=== PATIENT | female | born 1985 | race Caucasian/White ===

== ENCOUNTER → 2017-11-02 11:26 | Outpatient (CLI) | payer MEDICAID, SELFPAY ==
[2017-11-07 10:50] LABS: HPV Reflexed? NOT INDICATED
== END ==
PROVIDERS: Visit Provider Obstetrics & Gynecology
DX: Z12.4 Encounter for screening for malignant neoplasm of cervix (principal)
CPT/HCPCS: 88175; G0145

== ENCOUNTER → 2017-12-28 10:52 | Outpatient (CLI) | payer MEDICAID, SELFPAY | PROVIDERS: Visit Provider Internal Medicine Cardiovascular Disease | DX: I47.1 Supraventricular tachycardia (principal); R00.2 Palpitations | CPT/HCPCS: 93225; 93226 ==

== ENCOUNTER 2018-08-22 19:24 | Day surgery (SDC) | payer MEDICAID, SELFPAY ==
[2018-08-22 19:24] VITALS: BP 159/94; PULSE 124; RESP 18; TEMP 37.1; O2SAT 99; BMI 35.5
[2018-08-22 19:54] LABS: Mucous, Urine 0 SEEN /hpf (<or=2+); White Blood Cells 0 SEEN /hpf (0-5)
[2018-08-22 20:14] LABS: Color, Urine Yellow (Yellow); Glucose, Dipstick Normal (Normal); Ketone-Dipstick Negative (Negative); Leukocyte Esterase-Dipstick Negative /ul (Negative); Nitrite-Dipstick Negative (Negative); Occult Blood-Urine 250 /ul (Negative); Protein-Dipstick Negative (Negative); Urine Bilirubin Dipstick Negative (Negative); Urine Clarity Clear (Clear); Urine Urobilinogen Normal (Normal)
[2018-08-22 20:15] LABS: Bacteria RARE /hpf (None Seen); Squamous Epithelial Cells - UA 0-5 SEEN /hpf (5-10)
[2018-08-22 20:16] LABS: Red Blood Cells-Urine 0-5 SEEN /hpf (0-5)
[2018-08-22 21:27] LABS: Absolute Lymphocyte Count 2.42 X10^3/ul (0.83-4.51); Absolute Neutrophil Count 4.9 X10^3/uL (2.0-7.7); Basophil# 0.04 X10^3/uL; Basophil% 0.5 % (0-1); Eosinophil# 0.11 X10^3/uL; Eosinophils% 1.4 % (0-5); Hematocrit 39.4 % (37-47); Hemoglobin 13.3 g/dl (12.0-15.0); Lymphocyte # 2.42 X10^3/ul (4.0); Lymphocyte % 30.3 % (19-41); Mean Corp Hgb Conc 33.8 g/gl (32-36); Mean Corpuscular Hgb 29.5 pg (27.0-32.0); Mean Corpuscular Volume 87.4 fL (81-99); Mean Platelet Vol. 10.6 fl (6.2-12.0); Monocyte# 0.54 X10^3/uL; Monocyte% 6.8 % (0-10); Neutrophil # 4.88 X10^3/uL (2.7-7.7); Neutrophil % 60.9 % (47-70); Platelet Count 240 K/mm3 (150-450); RBC Distribution Width CV 12.6 % (11.6-14.6); RBC Distribution Width SD 40.8 fl (35.1-43.9); Red Blood Count 4.51 M/mm3 (4.2-5.4)
[2018-08-22 21:28] LABS: POSITIVE COUNT NO; POSITIVE DIFFERENTIAL NO; POSITIVE MORPHOLOGY NO
[2018-08-22 21:48] LABS: Internal QC Validated? YES +Cl - CLEAR BKGD
[2018-08-22 21:51] LABS: Pregnancy, Urine Positive Negative
--- NOTE | 2018-08-22 21:53 | US_ITS ---
STUDY: FIRST TRIMESTER OBSTETRICAL ULTRASOUND REASON FOR EXAM: Female, 32 years old. Lower pelvic pain for 3 days with moderate vaginal bleeding. LMP: Unknown. TECHNIQUE: Transabdominal and Transvaginal. Transvaginal imaging is performed for improved visualization of the endometrium and adnexal regions. TECHNICAL QUALITY: Adequate. PRIOR ULTRASOUND: Prior comparison studies are not available for review at this time. FINDINGS: There is no demonstrated intrauterine gestational sac. There is no demonstrated yolk sac. The placenta is non-visualized. There is no demonstrated embryo ( pole). The uterus measures 3.0 x 3.5 x 5.7 cm. There is no demonstrated uterine fibroid. The cervix is closed. The right ovary measures 4.6 x 2.8 x 2.1 cm. There are multiple follicles of the right ovary without a dominant cyst. There is adnexal mass that has prominent peripheral vascularity. It has a cystic center. The appearance suggests an ectopic. This measures approximately 3.7 x 4.8 x 2.8 cm. The left ovary measures 3.8 x 2.3 x 2.7 cm. There are multiple follicles of the left ovary without a dominant cyst. There is no visualized left adnexal mass or complex lesion. There is a moderate amount of fluid in the cul de sac. US/Transvaginal w/Preg US IMPRESSION: Sonographic findings revealing a right-sided adnexal mass without intrauterine . This suggests an ectopic . N.B. : The above information has been verbally conveyed by Nirmala Morales MD to Dr. Marc MD, on 08/22/2018 23:20:41 (ET). Electronically Signed: Nirmala Morales MD at 23:22 EDT , Service support ,
[2018-08-22 21:55] LABS: Anion Gap 7 (5-15); BUN 9 mg/dL (7-18); BUN/Creat Ratio 13.4 RATIO (10-20); Calcium,Total 8.9 mg/dL (8.5-10.1); Chloride 105 mmol/L (98-107); Creatinine, Serum 0.67 mg/dL (0.55-1.02); EST Glomerular Filtration Rate 107 mL/min (>60); Est Glom Filt Rate - Afr Amer 129 mL/min (>60); Estimated Creatinine Clearance 98.79 ml/min; Glucose 83 mg/dL (74-106); Potassium 3.5 mmol/L (3.5-5.1); Sodium Level 141 mmol/L (136-145)
--- NOTE | 2018-08-22 21:56 | ED.VISSUMM ---
- ER Visit Summary Date of Service: 08/22/18 Chief Complaint: Abdominal pain History of Present Illness: The patient is a [address] Lund. She reports that she has lower abdominal pain that began approximately 4 days ago. It came on suddenly. To been a constant pain that waxes and wanes. It is a sharp, stabbing pain that is 8 out of 10 at worst and 4-10 currently. Is worsened by movement or pushing on it. Is relieved by remaining still. She has had nausea without vomiting. No diarrhea. Her last bowel was today. No melena or hematochezia. No dysuria frequency. She reports that she is on her menstrual period now. It is a little heavier than usual. She denies any vaginal discharge. She has had subjective fever. Physical Examination: Vitals: 98.7, 136/79, 122, 16, 98% on room air which is not hypoxic. General: Well-nourished and well-developed. Head: Normocephalic atraumatic. Neck: Supple, no lymphadenopathy. No JVD. Nontender. Cardiovascular: Tachycardic regular rhythm . No murmurs. Respiratory: No respiratory distress. Clear to auscultation bilaterally. Abdominal: Soft, moderate suprapubic tenderness to palpation, nondistended, normal bowel sounds. No guarding, rebound, or peritoneal signs. Back: Nontender. Extremities: Nontender, no edema. Skin: Normal color, no rash. Neurologic: Alert and oriented ?3. Cranial nerves II through XII are intact. Normal strength and sensation. Psych: Normal affect. Test Results: CBC is normal. Chem-7 is normal. UA is negative. test is positive. Quantitative hCG is 279. Blood type is A+. Transvaginal ultrasound shows a right-sided adnexal mass that is 3.7 x 4.8 x 2.8 cm with a moderate amount of free fluid. Emergency Department Course and Treatment: Patient rested comfortably. She refused pain or nausea medications. Treatment Plan: The patient was discussed with Dr. Kinney. She is going to be taken to the operating room. Disposition: Admitted in stable condition. Impression: 1. Ectopic . This note was generated with [employer] dictation software. It may contain incorrect words, spelling, and punctuation that were not noted in review of the chart prior to signing ED Disposition - Plan for ED Patient: Referrals: Care Physician,No Primary [Primary Care Provider] -
[2018-08-22 22:28] LABS: hCG Titer Quant., Serum 279 mIU/mL (<9 non-preg)
[2018-08-22 23:16] VITALS: BP 136/79; PULSE 122; RESP 16; O2SAT 98
[2018-08-23] VITALS (7 sets, daily range): BP systolic 111–143; BP diastolic 77–101; PULSE 93–134; RESP 16–18; TEMP 37.2–37.7; O2SAT 96–100; BMI 35.5
--- NOTE | 2018-08-23 | FAL_PTH ---
PATIENT: ASIA GRACIA LOC: [facility] [place] U#:[id number] AGE/SX: 32/F ROOM: RE08/23/[address]: Dr. Angel Kinney MD : 1985 BED: DIS: 08/23/2018 SPEC #: [id number] RECD: 08/23/18 14:25 STATUS: ROSS CHAVEZ #: [id number] NKECHI: 08/23/18 00:[address]: Angel Kinney DEPT: SURGICAL PATHOLOGY RECD BY: Spencer Zendejas ENTERED: 08/23/18 14:25 SP TYPE: ECTOPIC OTHR DR: No Primary Care Phys Tissues: ECTOPIC PREG Procedures: Surgery Specimen Level IV HEADER OPERATION: Exploratory laparoscopy, right salpingectomy with removal ectopic PRE-OP DIAGNOSIS: Ectopic TISSUE SUBMITTED: Right fallopian tube with ectopic MICROSCOPIC DIAGNOSIS Right fallopian tube with ectopic : Chorionic villi and organizing blood clot consistent with products of conception. AM:brandon 08/27/18 COMMENT Case has been reviewed in consultation with Dr. Baliey who concurs with the above diagnosis. IDC:[email or web address] MICROSCOPIC DESCRIPTION Slides are reviewed. GROSS DESCRIPTION Received in fixative is one container labeled with the patient's name and designated right fallopian tube with ectopic . The specimen consists of a fallopian tube measuring 6 cm in length and up to 1.5 cm in diameter. The fimbrial end is identified. Close to fimbrial end, multiple blood clots are noted. No obvious rupture is noted. The lumen reveals multiple blood clots. No tissue is identified. Also present in the container are multiple blood clots measuring in aggregate 6 x 6 x 2 cm. Pump Servicer Helper sections are submitted in four cassettes as follows: 1 & 2 - fallopian tube, 3 & 4 - blood clots. / SJ:brandon 08/23/18 Additional cassettes are submitted, 5-13 - remainder of the specimen. / AM:brandon 08/24/18 TC:5 CPT: [id number]
--- NOTE | 2018-08-23 00:28 | PCM.HP.STD ---
Problem List (1) Ectopic without intrauterine Status: Acute Qualifiers: Location of ectopic : tubal Laterality: right Qualified Code(s): O00.101 - Right tubal without intrauterine (2) Ectopic , tubal Status: Acute Qualifiers: Intrauterine status: without intrauterine Laterality: right Qualified Code(s): O00.101 - Right tubal without intrauterine History of Present Illness Date of Admission: 08/23/18 Chief Complaint: Abdominal pain The patient is a 32 year old F [with bleeding and abdominal pain over the past few days. Pain became worse this evening. ] Past Medical History Past Medical History (Chronic Problems): Chronic Problems (Last Reviewed 11/16/17 @ 14:00 by Ziyad Maier MD) Palpitations (Chronic) Paroxysmal atrial tachycardia (Chronic) Sinus tachycardia (Chronic) Medical History: Medical History (Last Reviewed 11/16/17 @ 14:00 by Ziyad Maier MD) Palpitations (Chronic) R00.2 Paroxysmal atrial tachycardia (Chronic) I47.1 Sinus tachycardia (Chronic) R00.0 Allergies latex Allergy (Verified 08/22/18 19:27) Hives PINE SAP Allergy (Uncoded 08/22/18 19:27) Hives Home Medications: Ambulatory Orders Medication Instructions Recorded multivitamin tablet 1 tab PO QDAY 09/22/17 norethindrone (contraceptive) 0.35 0.35 mg PO QDAY 09/22/17 mg tablet Surgical History: Surgical History (Last Reviewed 11/16/17 @ 14:00 by Ziyad Maier MD) History of Z98.891 2008; 2012; 2015 Surgical History: - - C/S x3 Psychiatric History: 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: - - history of abnormal pap tests Lives: Spouse/ Significant Other Smoking Status: Never smoker Drugs: None - *Family History Maternal Family History: Family History (Last Reviewed 11/16/17 @ 14:00 by Ziyad Maier MD) Father Asthma Diabetes HLD (hyperlipidemia) Hypertension Mother Hypertension Pulmonary embolism Breast cancer History Items: No pertinent history Paternal Family History: Family History (Last Reviewed 11/16/17 @ 14:00 by Ziyad Maier MD) Father Asthma Diabetes HLD (hyperlipidemia) Hypertension Mother Hypertension Pulmonary embolism Breast cancer History Items: No pertinent history Review of Systems Constitutional: Denies: Chills, Fever Cardiovascular: Denies: Chest Pain, Chest Pressure, Chest Tightness, Edema Respiratory: Denies: Cough, Pleuritic Pain, Shortness of Breath Gastrointestinal: Reports: Abdominal Pain - lower Genitourinary: Denies: Dysuria, Frequency, Hematuria Gynecological: Reports: Vaginal bleeding - similar to period for the past 4 to 5 days Psychiatric: Denies: Anxiety, Depression Hematologic/ Lymphatic: Reports: Hx of blood clot - superficial thrombosis after IV placement VTE Information - Inpt Only VTE Present on Admission: No VTE Mechan Device Prophylaxis: SCD's VTE Pharm Prophylaxis ordered?: No Patient Problems: Active and Suspected Problems (Last Reviewed 11/16/17 @ 14:00 by Ziyad Maier MD) Ectopic without intrauterine (Acute) Ectopic , tubal (Acute) Subjective: Appears well in no distress. Objective: Afeb Tachycardic with marginally elevated BPs - Physical Exam General: Alert, Oriented x3, Cooperative, No apparent distress Lungs: Clear to auscultation, Normal air movement Cardiovascular: Regular rate, Regular Rhythm Abdomen: Soft, Non-Distended, - - Tender to deep palpation in the lower abdomen. No masses. No guarding Extremities: No edema Skin: No rashes Neurological: Neuro grossly intact Psych/Mental Status: Normal Affect Comment: some small amount of vaginal bleeding Vital Signs Temp Pulse Resp BP Pulse Ox 98.9 F 134 H 16 143/101 H 96 08/23/18 00:21 08/23/18 00:21 08/23/18 00:21 08/23/18 00:21 08/23/18 00:21 Oxygen Delivery Method Room Air Weight: 200 lb 9.93 oz Body Mass Index (BMI) 35.5 Laboratory Tests Past 24 Hrs 08/22/18 08/22/18 08/22/18 19:45 19:45 21:15 WBC 8.0 RBC 4.51 Hgb 13.3 Hct 39.4 MCV 87.4 MCH 29.5 MCHC 33.8 RDW 12.6 RDW Differential 40.8 Plt Count 240 MPV 10.6 Immature Gran % (Auto) 0.100 Neut % (Auto) 60.9 Lymph % (Auto) 30.3 [place] % (Auto) 6.8 Eos % (Auto) 1.4 Baso % (Auto) 0.5 Absolute Neuts (auto) 4.9 Absolute Lymphs (auto) 2.42 Total Counted Not Reportable Sodium Potassium Chloride Carbon Dioxide Anion Gap BUN Creatinine Estim Creat Clear Calc Est GFR (MDRD) Af Amer Est GFR (MDRD) Non-Af BUN/Creatinine Ratio Glucose Calcium HCG, Quant Urine Color Yellow Urine Clarity Clear Urine pH 6.0 Ur Specific [place] 1.010 Urine Protein Negative Urine Glucose (UA) Normal Urine Ketones Negative Urine Occult Blood 250 H Urine Nitrite Negative Urine Bilirubin Negative Urine Urobilinogen Normal Ur Leukocyte Esterase Negative Urine RBC 0-5 SEEN Urine WBC 0 SEEN Ur Squamous Epith Cells 0-5 SEEN Urine Bacteria RARE Urine Mucus 0 SEEN Urine Test Positive H 08/22/18 08/22/18 21:15 21:15 WBC RBC Hgb Hct MCV MCH MCHC RDW RDW Differential Plt Count MPV Immature Gran % (Auto) Neut % (Auto) Lymph % (Auto) [place] % (Auto) Eos % (Auto) Baso % (Auto) Absolute Neuts (auto) Absolute Lymphs (auto) Total Counted Sodium 141 Potassium 3.5 Chloride 105 Carbon Dioxide 29.0 Anion Gap 7 BUN 9 Creatinine 0.67 Estim Creat Clear Calc 98.79 Est GFR (MDRD) Af Amer 129 Est GFR (MDRD) Non-Af 107 BUN/Creatinine Ratio 13.4 Glucose 83 Calcium 8.9 HCG, Quant 279 H Urine Color Urine Clarity Urine pH Ur Specific [place] Urine Protein Urine Glucose (UA) Urine Ketones Urine Occult Blood Urine Nitrite Urine Bilirubin Urine Urobilinogen Ur Leukocyte Esterase Urine RBC Urine WBC Ur Squamous Epith Cells Urine Bacteria Urine Mucus Urine Test Assessment/Plan All Active Problems (Last Reviewed 11/16/17 @ 14:00 by Ziyad Maier MD) Ectopic without intrauterine (Acute) Ectopic , tubal (Acute) Likely with ruptured ectopic probably right side. Discussed US findings and diagnosis of probable ectopic. Also discussed possibility of early with ovarian cyst that may have ruptured. Indications for surgery discussed. Procedures, risks, and probable post operative recovery discussed. All questions answered, consents obtained. Plan for exploratory laparoscopy, possible salpingostomy, possible salpingectomy. Understands may lose ovary during surgery and may need open procedure if ectopic located in cornua or the uterus.
[2018-08-23] MEDS: Cefazolin 2 GM in 0.9% Normal Saline 100 ML IV (00:36)
--- NOTE | 2018-08-23 00:45 | DCINST_ITS ---
- Discharge Diagnoses Current Active Problems: Current Active and Chronic Problems (Last Reviewed 11/16/17 @ 14:00 by Ziyad Maier MD) Ectopic without intrauterine (Acute) Ectopic , tubal (Acute) You will use the following diet at home:: No restrictions Your food should be the consistency of: Regular Discharge Activity: Return to Normal Activity, May Drive, May not drive while taking narcotic pain medications., May Shower Return to work on:: 08/27/18 May shower in (days): 0 May resume sexual activity in: 2 weeks Call your doctor if your incision/area has: Continuous Slow Oozing, Sudden Increased Bleeding, Increased Pain/ Swelling, Increased Redness, Foul Smelling Discharge, Swelling at the incision site Call your doctor if you observe: Fever of 101 or Higher, Inability to urinate, Inability to have a bowel movement, Using more than one pad per hour, Shortness of breath, Chest pain, Calf discomfort, Uncontrolled pain Remove Dressing in (days):: 2 Cleanse incision/area with: Soap & Water Allergies/Adverse Reactions: Allergies latex Allergy (Verified 08/22/18 19:27) Hives PINE SAP Allergy (Uncoded 08/22/18 19:27) Hives Medications to take at Discharge multivitamin tablet 1 tab PO QDAY 09/22/17 norethindrone (contraceptive) 0.35 mg tablet 0.35 mg PO QDAY 09/22/17 Ibuprofen 600 mg PO 4X/DAY #30 tab 08/23/18 Oxycodone [Oxyir] 5 mg PO Q4H PRN PRN 7 Days #20 tab 08/23/18 The following prescriptions were given: Oxycodone [Oxyir] 5 mg PO Q4H PRN PRN 7 Days #20 tab PRN Reason: Severe Pain (6-10/10) Ibuprofen 600 mg PO 4X/DAY #30 tab Primary Care Physician: Care Physician,No Primary [Primary Care Provider] - Test Results: Test results from this visit will be discussed in further detail at your follow- up appointment, if applicable. Please Follow Up With: Denisse Lund MD - call office [phone] When: one week Proposed Discharge Date: 08/23/18
--- NOTE | 2018-08-23 00:45 | PCM.OPRPT ---
Problem List (1) Ectopic without intrauterine Status: Acute Qualifiers: Location of ectopic : tubal Laterality: right Qualified Code(s): O00.101 - Right tubal without intrauterine (2) Ectopic , tubal Status: Acute Qualifiers: Intrauterine status: without intrauterine Laterality: right Qualified Code(s): O00.101 - Right tubal without intrauterine Report of Operation Date of Procedure: 08/23/18 Pre-Operative Diagnosis: Ruptured ectopic Post-Operative Diagnosis: Same Surgery/Procedure Performed:: Exploratory Laparoscopy. Lysis of pelvic/abdominal adhesions, Evacuation of hemoperitoneum. Right salpingectomy Description of Surgical Findings:: Hemoperitoneum present with approximately 100cc of blood present. Blood was present near the liver as well. Right fallopian tube with ruptured ectopic present. Normal right and left ovaries. Normal left fallopian tube. Normal appearing uterus. Some scarring present between bladder and lower anterior uterine segment and cervix. emergency medicine nurse practitioner: Swathi Silva Type of Anesthesia:: General Anesthesiologist: Axel Caraballo Special Medications: none Specimen's removed: Right fallopian tube and ectopic Drains: none Estimated Blood Loss (mL): 10cc Fluids Replaced: 1000cc LR Description of Procedure: Shadia was taken to the OR with IV running. She was given two grams of Ancef intravenously for surgical prophylaxis. General anesthesia was induced without complication. She was then prepped and draped in the dorsal lithotomy position. The bladder was drained with a catheter. A weighted speculum was placed the cervix identified and the anterior lip grasped with a single toothed tenaculum. A uterine manipulator was placed. The speculum was then removed from the abdomen. Attention was then directed to the abdomen. A 5mm vertical incision was made in the lower base of the umbilicus. The underlying subcutaneous tissue was dissected down to the level of the fascia with a Heather clamp. The abdominal was was then elevated and a Veress needle was placed through the umbilical defect into the abdominal cavity. The abdomen was then inflated to 15 Torr with CO2 gas. The Veress needle was then removed and replaced with the laparoscope. Findings were as mentioned above. Two lateral 5mm laparoscopic ports were then placed each about 4 cm below the level of the umbilicus and lateral to the inferior epigastric vessels on the right and left respectively. The hemoperitoneum was evacuated. The right fallopian tube was unidentifiable at the fimbriated end due to traumatic rupture. Using the ligasure device the fallopian tube was dissected at the cornua and the mesosalpinx then dissected from the cornua to the fimbriated end. The specimen was then placed in an endocatch and removed through the umbilical incision. The pelvis was then irrigated removing all remaining clot and fluid. With hemostasis assured the lateral side ports were then removed under direct visualization of the laparoscope. The gas was then evacuated and the umbilical port removed. The skin incisions were closed with 4-0 Monocryl suture in a subcuticular fashion. The uterine manipulator was then removed. She was then reversed from anesthesia and taken to the recovery room in stable condition. Sponge, needle, and instrument counts were correct. Grafts/Implants Used: none - Complications none - Admit VTE Documentation VTE Present on Admission: No VTE Mechan Device Prophylaxis: SCD's VTE Pharm Prophylaxis ordered?: No
[2018-08-23] MEDS: Bupivacaine Mpf 0.5% 30 ML VIAL (01:45)
[2018-08-23] MEDS: Ketorolac 30 MG/ML Syringe IV (02:37)
[2018-08-23] MEDS: oxyCODONE 5 MG Tablet PO (03:09)
== END 2018-08-23 03:34 | disposition home or self-care (01) ==
LOC: ED 22:04 → SDC 08-23 00:04 → MS3 08-23 00:33 → ED 08-23 00:47 → SDC 08-23 00:47
PROVIDERS: Emergency Provider Emergency Medicine; Referring Provider Obstetrics & Gynecology; Visit Provider Obstetrics & Gynecology
PROC: 10T24ZZ Resection of Products of Conception, Ectopic, Percutaneous Endoscopic Approach (ICD-10-PCS; CPT 59150; principal; 2018-08-23 00:30)
DX: O00.101 Right tubal pregnancy without intrauterine pregnancy (principal); I10 Essential (primary) hypertension
CPT/HCPCS: 59151; 76817; 80048; 81001; 81025; 84702; 85025; 88305; 99284; J7030; A4216; J2405

== ENCOUNTER → 2018-11-05 15:35 | Outpatient (CLI) | payer MEDICAID, SELFPAY ==
[2018-08-23 00:21] VITALS: BMI 35.5
[2018-11-12 13:01] LABS: HPV Reflexed? NOT INDICATED
== END ==
PROVIDERS: Visit Provider Obstetrics & Gynecology
DX: Z12.4 Encounter for screening for malignant neoplasm of cervix (principal)
CPT/HCPCS: 88175; G0145

== ENCOUNTER → 2018-11-22 10:46 | Outpatient (CLI) | payer MEDICAID, SELFPAY ==
[2018-11-20 09:35] VITALS: BMI 34.2
== END ==
PROVIDERS: Referring Provider Internal Medicine Cardiovascular Disease; Visit Provider Internal Medicine Cardiovascular Disease
DX: R00.2 Palpitations (principal)
CPT/HCPCS: 93225; 93226

== ENCOUNTER → 2019-12-26 | Outpatient (CLI) | payer MEDICAID, SELFPAY ==
[2018-11-20 09:35] VITALS: BMI 34.2
[2019-12-31 17:11] LABS: HPV APTIMA, High Risk Negative (Negative); HPV Reflexed? NOT INDICATED
== END | disposition home or self-care (01) ==
LOC: LABSPEC 16:55
PROVIDERS: Referring Provider Student in an Organized Health Care Education/Training Program; Visit Provider Student in an Organized Health Care Education/Training Program
DX: Z12.4 Encounter for screening for malignant neoplasm of cervix (principal)
CPT/HCPCS: 88175; G0145

== ENCOUNTER → 2020-02-18 15:14 | Outpatient (CLI) | payer MEDICAID, SELFPAY ==
[2018-11-20 09:35] VITALS: BMI 34.2
--- NOTE | 2020-02-18 15:16 | BI_ITS ---
MAMMOGRAPHY - BILATERAL SCREENING REASON FOR EXAM: Female, 34 years old. Routine annual screening examination. PERTINENT HISTORY: Mother with breast cancer. Grandmother with breast cancer. TECHNIQUE: Digital bilateral breast gigi (3D mammographic acquisition) in the CC and MLO projections. 2-D mediolateral oblique (MLO) and craniocaudad (CC) views of both breasts were obtained. CAD: Full Field Digital Mammography with Computer Added Detection was performed. COMPARISON: None. Baseline examination. FINDINGS: Breast Composition: The breasts are heterogeneously dense, which may obscure small masses. There are no dominant masses or suspicious calcifications. No other significant abnormalities are identified. BI/SCREEN MAMM (CAD) W/GIGI BILAT IMPRESSION: Negative screening mammogram. Yearly followup mammogram recommended. (A) ASSESSMENT CATEGORY: BIRADS Category 1: Negative. A letter regarding these results will be sent to the patient by the facility within 30 days. Approximately 10% of breast cancers are not detected by mammography. A normal mammogram should not delay biopsy of a clinically suspicious abnormality. [id number] Electronically Signed: Smith Ruiz, at 8:18 EDT , Service support ,
== END ==
PROVIDERS: PCP Nurse Practitioner Family; Referring Provider Student in an Organized Health Care Education/Training Program; Visit Provider Student in an Organized Health Care Education/Training Program
DX: Z12.31 Encounter for screening mammogram for malignant neoplasm of breast (principal)
CPT/HCPCS: 77063; 77067

== ENCOUNTER → 2021-03-08 | Outpatient (CLI) | payer MEDICAID, SELFPAY ==
[2021-03-12 15:32] LABS: HPV APTIMA, High Risk Negative (Negative)
== END | disposition home or self-care (01) ==
PROVIDERS: PCP Nurse Practitioner Family; Visit Provider Student in an Organized Health Care Education/Training Program
DX: Z12.4 Encounter for screening for malignant neoplasm of cervix (principal)
CPT/HCPCS: 87624; 88175; G0145

== ENCOUNTER → 2021-04-06 09:44 | Outpatient (CLI) | payer MEDICAID, SELFPAY ==
--- NOTE | 2021-04-06 09:46 | BI_ITS ---
MAMMOGRAPHY - BILATERAL SCREENING REASON FOR EXAM: Female, 35 years old. Routine annual screening examination. PERTINENT HISTORY: Mother with breast cancer. Grandmother with breast cancer. TECHNIQUE: Digital bilateral breast gigi (3D mammographic acquisition) in the CC and MLO projections. 2-D mediolateral oblique (MLO) and craniocaudad (CC) views of both breasts were obtained. CAD: Full Field Digital Mammography with Computer Added Detection was performed. COMPARISON: Comparison is made with prior study dated 02/18/2020. FINDINGS: Breast Composition: The breasts are heterogeneously dense, which may obscure small masses. There are no dominant masses or suspicious calcifications. Stable small benign-appearing bilateral axillary lymph nodes. No other significant abnormalities are identified. There has been no significant change since the prior study. BI/SCRN MAMM (CAD)W/GIGI BILAT IMPRESSION: Stable bilateral screening mammogram. Yearly follow-up mammogram recommended. (A) ASSESSMENT CATEGORY: BIRADS Category 2: Benign. A letter regarding these results will be sent to the patient by the facility within 30 days. Approximately 10% of breast cancers are not detected by mammography. A normal mammogram should not delay biopsy of a clinically suspicious abnormality. [id number] Electronically Signed: Smith Ruiz MD at 12:11 EST , Service support ,
== END ==
PROVIDERS: PCP Nurse Practitioner Family; Referring Provider Student in an Organized Health Care Education/Training Program; Visit Provider Student in an Organized Health Care Education/Training Program
DX: Z12.31 Encounter for screening mammogram for malignant neoplasm of breast (principal); Z80.3 Family history of malignant neoplasm of breast
CPT/HCPCS: 77063; 77067

== ENCOUNTER → 2022-03-23 | Outpatient (CLI) | payer MEDICAID, SELFPAY ==
[2022-03-30 14:50] LABS: HPV APTIMA, High Risk Negative (Negative)
== END | disposition home or self-care (01) ==
LOC: LABSPEC 11:19
PROVIDERS: PCP Nurse Practitioner Family; Visit Provider Student in an Organized Health Care Education/Training Program
DX: Z12.4 Encounter for screening for malignant neoplasm of cervix (principal)
CPT/HCPCS: 87624; 88175; G0145

== ENCOUNTER → 2022-04-22 | Outpatient (CLI) | payer MEDICAID, SELFPAY ==
--- NOTE | 2022-04-22 13:58 | BI_ITS ---
MAMMOGRAPHY - BILATERAL SCREENING REASON FOR EXAM: Female, 36 years old. Routine annual screening examination. PERTINENT HISTORY: Sister with breast cancer. Grandmother with breast cancer. TECHNIQUE: Digital bilateral breast gigi (3D mammographic acquisition) in the CC and MLO projections. 2-D mediolateral oblique (MLO) and craniocaudad (CC) views of both breasts were obtained. CAD: Full Field Digital Mammography with Computer Added Detection was performed. COMPARISON: Comparison is made with prior examination dated 04/06/2021 and 02/18/2020. FINDINGS: Breast Composition: The breasts are heterogeneously dense, which may obscure small masses. There are no dominant masses or suspicious calcifications. Stable benign-appearing bilateral axillary lymph nodes. No other significant abnormalities are identified. There has been no significant change since the prior study. BI/SCRN MAMM (CAD)W/GIGI BILAT IMPRESSION: Stable bilateral screening mammogram. Yearly follow-up mammogram recommended. (A) ASSESSMENT CATEGORY: BIRADS Category 2: Benign. A letter regarding these results will be sent to the patient by the facility within 30 days. Approximately 10% of breast cancers are not detected by mammography. A normal mammogram should not delay biopsy of a clinically suspicious abnormality. [id number] Electronically Signed: Smith Ruiz MD at 15:21 EST ,
== END | disposition home or self-care (01) ==
PROVIDERS: PCP Nurse Practitioner Family; Visit Provider Student in an Organized Health Care Education/Training Program
DX: Z12.31 Encounter for screening mammogram for malignant neoplasm of breast (principal); Z80.3 Family history of malignant neoplasm of breast
CPT/HCPCS: 77063; 77067

== ENCOUNTER → 2023-04-25 | Outpatient (CLI) | payer MEDICAID, SELFPAY ==
--- NOTE | 2023-04-25 12:56 | BI_ITS ---
MAMMOGRAPHY - BILATERAL SCREENING REASON FOR EXAM: Female, 37 years old. Routine annual screening examination. PERTINENT HISTORY: Mother with breast cancer. Grandmother with breast cancer. TECHNIQUE: Digital bilateral breast gigi (3D mammographic acquisition) in the CC and MLO projections. 2-D mediolateral oblique (MLO) and craniocaudad (CC) views of both breasts were obtained. CAD: Full Field Digital Mammography with Computer Added Detection was performed. COMPARISON: Comparison is made with prior study dated April 22, 2022 and April 06, 2021. FINDINGS: Breast Composition: The breasts are heterogeneously dense, which may obscure small masses. There are no dominant masses or suspicious calcifications. Stable benign-appearing bilateral axillary lymph nodes. No other significant abnormalities are identified. There has been no significant change since the prior study. BI/SCRN MAMM (CAD)W/GIGI BILAT IMPRESSION: Stable bilateral screening mammogram. Yearly follow-up mammogram recommended. (A) ASSESSMENT CATEGORY: BIRADS Category 2: Benign. A letter regarding these results will be sent to the patient by the facility within 30 days. Approximately 10% of breast cancers are not detected by mammography. A normal mammogram should not delay biopsy of a clinically suspicious abnormality. [id number] Electronically Signed: Smith Ruiz MD at 14:27 EST ,
== END | disposition home or self-care (01) ==
LOC: OPBI 12:55
PROVIDERS: PCP Nurse Practitioner Family; Visit Provider Nurse Practitioner Family
DX: Z12.31 Encounter for screening mammogram for malignant neoplasm of breast (principal)
CPT/HCPCS: 77063; 77067

== ENCOUNTER → 2024-04-29 | Outpatient (CLI) | payer MEDICAID, SELFPAY ==
--- NOTE | 2024-04-29 12:12 | BI_ITS ---
MAMMOGRAPHY - BILATERAL SCREENING 3-D TOMOSYNTHESIS REASON FOR EXAM: Female, 38 years old. Screening for breast cancer PERTINENT HISTORY: No significant family history. TECHNIQUE: 2-D mammograms and 3-D Tomosynthesis of the breast (s) were performed. CAD was performed. COMPARISON: 04/25/2023 FINDINGS: The breast composition is composed of scattered fibroglandular density. Scattered benign calcifications are seen. No dense spiculated masses or suspicious microcalcifications are identified. No architectural distortion is identified. There is no skin thickening or retraction. There has been no significant change since the prior study. BI/SCRN MAMM (CAD)W/GIGI BILAT IMPRESSION: No mammographic signs of malignancy. Routine yearly mammograms recommended. ASSESSMENT CATEGORY: BIRADS Category 1: Negative. A letter regarding these results will be sent to the patient by the facility within 30 days. FOLLOW UP RECOMMENDATION: Yearly follow up mammogram recommended. (A) Approximately 10% of breast cancers are not detected by mammography. A normal mammogram should not delay biopsy of a clinically suspicious abnormality. Electronically Signed: Elias Richardson MD at 17:54 EST ,
== END | disposition home or self-care (01) ==
LOC: OPBI 12:12
PROVIDERS: PCP Nurse Practitioner Family; Referring Provider Nurse Practitioner Women's Health; Visit Provider Nurse Practitioner Women's Health
DX: Z12.31 Encounter for screening mammogram for malignant neoplasm of breast (principal)
CPT/HCPCS: 77063; 77067